=== PATIENT | male | born 1975 | race Caucasian/White ===

== ENCOUNTER 2022-07-14 16:28 | Emergency (ER) | payer OTHER, SELFPAY ==
[2022-07-14 16:51] VITALS: BP 123/78; PULSE 76; RESP 16; TEMP 37.2; O2SAT 97; BMI 28.3
--- NOTE | 2022-07-14 17:13 | CRLHL7_ITS ---
For Patients: As a result of the Century Cures Act, medical imaging exams and procedure reports are released immediately into your electronic medical record. You may view this report before your referring provider. If you have questions, please contact your health care provider. INDICATION: Lower abdominal pain. TECHNIQUE: CT abdomen and pelvis acquired with 79 cc Isovue 370 IV contrast. COMPARISON: None. FINDINGS: Lower chest: Unremarkable. Liver: Unremarkable. Normal in size and attenuation. No suspicious masses. Gallbladder and bile ducts: Unremarkable. No stones or inflammation. No biliary dilatation. Pancreas: Unremarkable. No mass or inflammation. Spleen: Unremarkable. Normal in size. No masses. Adrenal glands: Unremarkable. No nodules. Kidneys: Unremarkable. No suspicious masses, stones, or hydronephrosis. GI tract: Descending and sigmoid colon diverticulosis. Short segments sigmoid colon wall thickening about a diverticulum. There is a 2.0 x 2.2 x 1.8 cm rim enhancing fluid collection within the posterior wall of the sigmoid colon in this location, consistent with an intramural abscess. It may have ruptured as there is discontinuity of the abscess wall and apparent extension of the contents into the mesentery with extensive local inflammatory changes and thickening of the adjacent fascia (series 2, image 101). Small bowel is normal in caliber. Normal appendix. Vasculature: Abdominal aorta is normal in caliber. Mesenteric arteries are patent. Lymph nodes: No lymphadenopathy. Peritoneum/Abdominal Wall: No free air. As above with probable ruptured sigmoid colon intramural abscesses. Pelvis: Unremarkable. 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 IMPRESSION: Acute sigmoid colon diverticulitis with 2.2 cm intramural abscess that appears to have ruptured into the mesentery. No free air or obstruction. Please note that all CT scans at this facility use dose modulation, iterative reconstruction, and/or weight-based dosing when appropriate to reduce radiation dose to as low as reasonably achievable. Dictated by Jareth Scott MD @ 07/14/2022 6:30:13 PM (Electronically Signed)
[2022-07-14 17:42] LABS: Basophils Percent Auto 0.4 % (0.0-3.0); Eosinophils Percent Auto 2.6 % (0.0-7.0); Hemoglobin* 15.4 gm/dL (13.5-17.5); Immature Granulocytes Pct Auto 0.4 %; Lymphocytes Percent Auto 17.9 % (20-44); Mean Corpuscular HGB Conc 34 gm/dL (32-36); Mean Corpuscular Hemoglobin 33 pg (26-34); Mean Corpuscular Volume 97 fL (80-100); Monocytes Percent Auto 5.6 % (0.0-11.0); Neutrophils Percent Auto 73.1 % (42.0-72.0); Platelet Count* 285 K/uL (140-440); RDW Coefficient of Variation % 11.4 % (11.5-15.5); Red Blood Count 4.66 m/uL (4.30-5.90); White Blood Count* 13.49 K/uL (4.50-11.00)
[2022-07-14 18:07] LABS: Chloride* 104 mmol/L (96-114); Potassium* 4.4 mmol/L (3.6-5.1); Sodium* 139 mmol/L (135-149)
[2022-07-14 18:07] LABS: Slide Review Reflex No
[2022-07-14 18:10] LABS: Blood Urea Nitrogen* 12 mg/dL (5-24); Carbon Dioxide* 27 mmol/L (20-32)
[2022-07-14 18:11] LABS: Calcium* 9.4 mg/dL (8.4-10.6); Glucose* 93 mg/dL (60-115)
[2022-07-14 18:26] LABS: Creatinine* 0.8 mg/dL (0.5-1.5); Est. Creatinine Clearance* 91.87; Estimated Glomerular Filt Rate 110 ml/min
--- NOTE | 2022-07-14 18:38 | ED.ABDPAIN ---
HPI - Abdominal Pain General Chief Complaint: Abdominal Pain Stated Complaint: Lower abdomen pain, hurt to touch Time Seen by Provider: 07/14/22 16:38 History of Present Illness HPI narrative: This 46-year-old male comes in with lower abdominal pain that began about a week and half ago. He states that the pain comes and goes but sometimes is rather severe and makes him feel ill. He states that if he remains still he has very minimal or sometimes no pain. Pain is worse when palpating his lower abdomen and with certain movements. He does not report any fevers. He has not had any altered bowel function and no blood in the toilet. He has not had a colonoscopy. He does have some increased pain when performing a bowel movement. Related Data Home Medications Medication Instructions Recorded Confirmed ibuprofen [Advil] PO 07/14/22 07/14/22 Previous Rx's Medication Instructions Recorded hydrocodone 5 mg-acetaminophen 325 1 tab PO Q4-6H PRN pain #15 tabs 07/14/22 mg tablet Allergies Allergy/AdvReac Type Severity Reaction Status Date / Time bees Allergy Severe Hives Uncoded 07/14/22 16:56 shelfish Allergy Severe hives Uncoded 07/14/22 16:56 Review of Systems Status of ROS Reports: 10 or more systems reviewed and unremarkable except as noted in History and below Narrative Constitutional: No fevers, no weight gain or loss. Eyes: No discharge. No vision changes. HENT: No congestion, no sore throat, no ear pain. Cardiovascular: No chest pain, no palpitations. Respiratory: No shortness of breath, no wheezes, no cough. Gastrointestinal: No vomiting, no diarrhea. Abdominal pain as described above. Genitourinary: No dysuria, no hematuria. Musculoskeletal: Normal range of motion. Skin: No rashes, no pruritis. Neurological: No dizziness, weakness, sensory change, speech change. Endo/Heme/Allergies: No bruising or bleeding. No polydipsia. Pysch: no suicidality, no anxiety, no insomnia. All other systems reviewed and are negative. PFSH PFS Social History Smoking Status: Never smoker Do you use any of these nicotine containing products: None Second hand tobacco smoke exposure: No How often do you have a drink containing alcohol: 2-3 times a week How many standard drinks containing alcohol do you have on a typical day: 3 or 4 How often do you have six or more drinks on one occasion: Less than monthly AUDIT-C Alcohol total score: 5 Non-prescribed substance use: denies use and over the counter (eg: immodium) Non-prescribed substance use details: advil service: No Exam Narrative: Exam Narrative: Constitutional: Well-developed, well-nourished, no acute distress. HEENT: Normocephalic, atraumatic. Neck: Normal range of motion. Nontender. Supple. Heart: Regular. No murmurs. Normal rate. Intact distal pulses. Lungs: Clear to auscultation. No chest discomfort. No wheezes, rhonchi, or rales. Abdomen: Normal bowel sounds. Tenderness in the lower abdomen left greater than right. No rebound tenderness. Genitalia: Deferred. Back: No midline tenderness. Normal range of motion. Extremities: Normal range of motion. No injury. Skin: Intact. No rash. Warm. No erythema or pallor. Neurologic: No altered sensation. No weakness. Alert and oriented. Psychiatric: No suicidality. No anxiety or depression. No insomnia. Nursing notes and vitals signs are reviewed. Const: Vital Signs, click to edit/add: Vital Signs - 24 hr 07/14/22 16:51 Temperature 99.0 F Pulse Rate [Right Pulse Oximeter] 76 Respiratory Rate 16 Blood Pressure [Ri ght Upper Arm] 123/78 Pulse Oximetry 97 Oxygen Delivery Me thod Room Air Course Vital Signs Vital signs: Initial Vital Signs Temperature 99.0 F 07/14/22 16:51 Temperature Source Temporal Artery Scan 07/14/22 16:51 Pulse Rate 76 07/14/22 16:51 Pulse Rhythm 07/14/22 16:51 Respiratory Rate 16 07/14/22 16:51 Blood Pressure 123/78 07/14/22 16:51 Blood Pressure Mean 93 07/14/22 16:51 Blood Pressure Position Sitting 07/14/22 16:51 Pulse Oximetry 97 07/14/22 16:51 Oxygen Delivery Method 07/14/22 16:51 Vital Signs Temperature 99.0 F 07/14/22 16:51 Pulse Rate 76 07/14/22 16:51 Respiratory Rate 16 07/14/22 16:51 Blood Pressure 123/78 07/14/22 16:51 Pulse Oximetry 97 07/14/22 16:51 Oxygen Delivery Method 07/14/22 16:51 Temperature 99.0 F 07/14/22 16:51 Pulse Rate 76 07/14/22 16:51 Respiratory Rate 16 07/14/22 16:51 Blood Pressure 123/78 07/14/22 16:51 Pulse Oximetry 97 07/14/22 16:51 Oxygen Delivery Method 07/14/22 16:51 MDM - Abdominal Pain MDM Narrative Medical decision making narrative: This patient presents with abdominal pain that is suspicious for diverticulitis. He has not had an episode of this in the past. An IV was established and a scan was done using IV contrast. This does return with evidence of acute diverticulitis with a 2.2 cm abscess that has possibly ruptured into the mesentery. There is no evidence of free air. The patient has a mildly increased white blood cell count but otherwise has normal vital signs. He was up to the bathroom and seems to move around without much difficulty. I explained and relayed these symptoms to the surgeon on-call, Dr. Romero, who recommended IV antibiotic infusions daily for 7 days. He received his 1st dose of ertapenem 1 g here and arrangements are made for 6 more doses over the next 6 days. He will be returning here for these treatments and can certainly get checked in for further evaluation if symptoms are worsening. I advised him to keep his stool soft. He is recommended to have a colonoscopy after things settle down. He also received a prescription for some tablets of [place] but is informed that this medicine though providing pain relief can complicate things with increased constipation. Lab Data Labs: Lab Results 07/14/22 07/14/22 Range/Units 17:13 17:30 WBC 13.49 H (4.50-11.00) K/uL RBC 4.66 (4.30-5.90) m/uL Hgb 15.4 (13.5-17.5) gm/dL Hct 45.0 (37.0-53.0) % MCV 97 (80-100) fL MCH 33 (26-34) pg MCHC 34 (32-36) gm/dL RDW Coeff of George 11.4 L (11.5-15.5) % Plt Count 285 (140-440) K/uL Neut % (Auto) 73.1 H (42.0-72.0) % Lymph % (Auto) 17.9 L (20-44) % [place] % (Auto) 5.6 (0.0-11.0) % Eos % (Auto) 2.6 (0.0-7.0) % Baso % (Auto) 0.4 (0.0-3.0) % Neut # (Auto) 9.90 H (1.7-7.0) K/uL Lymph # (Auto) 2.40 (0.90-2.90) K/uL [place] # (Auto) 0.80 (0.00-0.90) K/UL Eos # (Auto) 0.40 (0.00-0.50) K/uL Baso # (Auto) 0.10 (0.00-0.30) K/uL Sodium 139 (135-149) mmol/L Potassium 4.4 (3.6-5.1) mmol/L Chloride 104 (96-114) mmol/L Carbon Dioxide 27 (20-32) mmol/L BUN 12 (5-24) mg/dL Creatinine 0.8 (0.5-1.5) mg/dL Estimated Creat Clear 91.87 Estimated GFR 110 ml/min Glucose 93 (60-115) mg/dL Calcium 9.4 (8.4-10.6) mg/dL Imaging Data CT scan - abdomen: Radiologist's impression: Acute sigmoid colon diverticulitis with 2.2 cm intramural abscess that appears to have ruptured into the mesentery. No free air or obstruction. Discharge Plan Discharge Clinical Impression: Diverticulitis Patient Disposition: Home, Self-Care Condition: Stable Additional Instructions: Take medicine as needed and indicated. Return daily for 6 days of infusion of ertapenem intravenously. Return to emergency department otherwise if symptoms are worsening. Follow-up for colonoscopy after symptoms resolved. Prescriptions: New hydrocodone-acetaminophen 5-325 mg tablet 1 tab PO Q4-6H PRN (Reason: pain) Qty: 15 0RF No Action ibuprofen [Advil] PO Follow Up/Referrals: Provider,Not a Local [Primary Care Provider] - Stand Alone Forms: [facility] Info Instructions
[2022-07-14] MEDS: ERTAPENEM 1 GM in 0.9 % SODIUM CHLORIDE Mini-bag 100 ML IVPB (19:15)
[2022-07-14 19:19] VITALS: BP 113/84; PULSE 81; RESP 14; TEMP 37; O2SAT 100
== END 2022-07-14 20:01 | disposition home or self-care (01) ==
PROVIDERS: Emergency Provider Emergency Medicine Emergency Medical Services
DX: K57.20 Diverticulitis of large intestine with perforation and abscess without bleeding (principal)
CPT/HCPCS: 36415; 74177; 80048; 85025; 96365; 99283; 99284; 99285; J1335; Q9967

== ENCOUNTER 2022-07-20 14:30 | Outpatient (RCR) | payer OTHER, SELFPAY ==
[2022-07-15 14:36] VITALS: BP 120/80; PULSE 79; RESP 16; TEMP 36; O2SAT 98
[2022-07-15] MEDS: ERTAPENEM 1 GM in 0.9 % SODIUM CHLORIDE Mini-bag 100 ML IVPB (14:46)
[2022-07-16] MEDS: ERTAPENEM 1 GM in 0.9 % SODIUM CHLORIDE Mini-bag 100 ML IVPB (14:33)
[2022-07-17 13:00] VITALS: BP 110/58; PULSE 75; RESP 16; TEMP 36.4; O2SAT 100
[2022-07-17] MEDS: ERTAPENEM 1 GM in 0.9 % SODIUM CHLORIDE Mini-bag 100 ML IVPB (13:15)
[2022-07-18] MEDS: ERTAPENEM 1 GM in 0.9 % SODIUM CHLORIDE Mini-bag 100 ML IVPB (13:07)
[2022-07-18 13:20] VITALS: BP 130/72; PULSE 72; RESP 16; TEMP 36.6; O2SAT 97
[2022-07-19 13:00] VITALS: BP 114/74; PULSE 78; RESP 16; TEMP 36.6
[2022-07-19] MEDS: ERTAPENEM 1 GM in 0.9 % SODIUM CHLORIDE Mini-bag 100 ML IVPB (13:07)
[2022-07-20] MEDS: ERTAPENEM 1 GM in 0.9 % SODIUM CHLORIDE Mini-bag 100 ML IVPB (14:39)
[2022-07-20] MEDS: 0.9 % SODIUM CHLORIDE 250 ml IV (14:40)
== END 2023-01-11 23:59 | disposition home or self-care (01) ==
LOC: CCIC 14:30
PROVIDERS: Visit Provider Emergency Medicine Emergency Medical Services
DX: K57.92 Diverticulitis of intestine, part unspecified, without perforation or abscess without bleeding (principal)
CPT/HCPCS: 96365; 99211; J1335; J7050

== ENCOUNTER 2022-07-28 15:34 | Outpatient (CLI) | payer OTHER, SELFPAY ==
--- NOTE | 2022-07-28 16:00 | CRLHL7_ITS ---
For Patients: As a result of the Century Cures Act, medical imaging exams and procedure reports are released immediately into your electronic medical record. You may view this report before your referring provider. If you have questions, please contact your health care provider. INDICATION: f/u diverticulitis abscess LLQ tender TECHNIQUE: CT abdomen and pelvis with 79 cc Omnipaque 370 IV contrast. COMPARISON: CT abdomen pelvis July 14, 2022. FINDINGS: The liver is normal in size, shape and attenuation. Gallbladder and biliary tree are normal. The spleen, adrenal glands and pancreas are within normal limits. The kidneys are unremarkable. No hydronephrosis. Unremarkable appearing bladder. There is redemonstration of acute diverticulitis involving the sigmoid colon with degree of inflammation markedly improved. Previously suspected ruptured intramural abscess has improved with residual minimal thickening/fluid of the sigmoid wall. There is no evidence of new fluid collection. No evidence of bowel obstruction. Unremarkable appearing appendix. No evidence of free air. Pelvic organs are unremarkable. The lower chest is unremarkable. L5 pars defects is again demonstrated. IMPRESSION: There is redemonstration of acute diverticulitis involving the sigmoid colon with degree of inflammation markedly improved. Previously suspected ruptured intramural abscess has improved with residual minimal thickening/fluid of the sigmoid wall. There is no evidence of new fluid collection. No new acute intra abdominal process. Please note that all CT scans at this facility use dose modulation, iterative reconstruction, and/or weight-based dosing when appropriate to reduce radiation dose to as low as reasonably achievable. Dictated by Deni Lloyd MD @ 07/28/2022 5:55:39 PM (Electronically Signed)
== END 2022-07-28 15:35 | disposition home or self-care (01) ==
LOC: CT 15:35
PROVIDERS: PCP Emergency Medicine; Visit Provider Emergency Medicine
DX: K57.92 Diverticulitis of intestine, part unspecified, without perforation or abscess without bleeding (principal)
CPT/HCPCS: 74177; 86140; Q9967

== ENCOUNTER 2022-09-24 10:02 | Outpatient (CLI) | payer OTHER, SELFPAY | END 2022-09-24 10:03 | disposition home or self-care (01) | LOC: OP CLINIC 10:03 | PROVIDERS: PCP Emergency Medicine; Visit Provider Internal Medicine | DX: Z12.11 Encounter for screening for malignant neoplasm of colon (principal); K63.5 Polyp of colon; K57.30 Diverticulosis of large intestine without perforation or abscess without bleeding | CPT/HCPCS: 45380; 88305; J2250; J2405; J3010 ==

== ENCOUNTER 2024-12-27 12:45 | Outpatient (CLI) | payer OTHER, SELFPAY ==
--- NOTE | 2024-12-27 13:00 | MR_ITS ---
[address] [address] Phone:?[phone] Fax:?[phone] Referring Physician Information: Zackary Street M.D. [address] [address] Phone:?[phone] Fax:?[phone] Patient:Seth Lockett D.O.B:?1975 Sex:?Male Phone:?[phone] [facility] MRN:?[id number] Exam Date:?12/27/2024 EXAM: MRI of the RIGHT SHOULDER, without contrast CLINICAL: Right shoulder pain. Evaluate for proximal biceps tear. COMPARISONS: X-rays dated 12/20/2024. TECHNICAL: Multiplanar multisequence MRI of the right shoulder was obtained. SEDATION: None. CONTRAST: None. FINDINGS: Rotator cuff: Supraspinatus/Infraspinatus: There is high-grade partial/near full-thickness bursal surface tearing of the distal supraspinatus tendon measuring approximately 16 mm in AP dimension with approximately 11 mm of proximal retraction of torn tendon fibers as seen on coronal series 5 images 8-9 and sagittal series 9 image 6. Tearing is superimposed upon moderate tendinosis. Infraspinatus tendon appears intact and unremarkable. There is no significant fatty atrophy of the muscles. Teres minor: No tendinosis, tear or atrophy. Subscapularis: Mild tendinosis without evidence of significant tendon tear. No fatty atrophy of the muscle. Bursae: Subacromial-subdeltoid: Mild bursal fluid. Subcoracoid: No significant bursal fluid. Coracoacromial arch: Acromion morphology: Type II. No os acromiale. Acromiohumeral space: Within normal limits. Coracohumeral space: Within normal limits. Biceps tendon, long head: Suspect mild tendinosis of the intra-articular tendon. No significant tendon tear or displacement. Glenohumeral joint: Physiologic volume of joint fluid. Articular cartilage: No significant chondral loss. Capsule: No evidence of capsular thickening or injury. Labrum: There is tearing of the superior labrum posterior to the biceps anchor as seen on coronal series 5 image 15-18. There is attenuation/degeneration of the posterior labrum. No perilabral cyst identified. Bones: There is osseous cystic change and reactive marrow edema involving the greater tuberosity of the proximal humerus adjacent to the distal supraspinatus tendon pathology. No evidence of acute fracture. Acromioclavicular joint: Minimal degenerative hypertrophic change. No AC joint injury/widening. IMPRESSION: 1. High-grade partial/near full-thickness tearing of the distal supraspinatus tendon with approximately 11 mm of proximal retraction of torn tendon fibers. Moderate tendinosis of the distal supraspinatus tendon and mild subscapularis tendinosis. 2. Tearing of the superior labrum with attenuation and degeneration of the posterior labrum. 3. Suspect mild tendinosis of the intra-articular long biceps tendon. No biceps tendon tear or displacement. 4. No evidence of fracture or glenohumeral chondral defects. JCZ Electronically signed on 12/28/2024 8:51:00 AM by Alin Cullen D.O.
== END 2024-12-27 12:46 | disposition home or self-care (01) ==
LOC: MRI 12:45
PROVIDERS: PCP Emergency Medicine; Visit Provider Orthopaedic Surgery Sports Medicine
DX: M25.511 Pain in right shoulder (principal); M75.101 Unspecified rotator cuff tear or rupture of right shoulder, not specified as traumatic; S43.431A Superior glenoid labrum lesion of right shoulder, initial encounter
CPT/HCPCS: 73221

== ENCOUNTER 2025-04-26 15:20 | Outpatient (CLI) | payer OTHER, SELFPAY | END 2025-04-26 15:21 | disposition home or self-care (01) | LOC: NFLDREF 04-30 08:43 | PROVIDERS: PCP Emergency Medicine; Referring Provider Emergency Medicine; Visit Provider Family Medicine | DX: Z01.818 Encounter for other preprocedural examination (principal) | CPT/HCPCS: 80048 ==

== ENCOUNTER 2025-05-15 07:28 | Day surgery (SDC) | payer OTHER, SELFPAY ==
[2025-05-15] VITALS (16 sets, daily range): BP systolic 108–132; BP diastolic 55–80; PULSE 66–88; RESP 16–18; TEMP 36.3–36.8; O2SAT 93–100; BMI 24.6
--- NOTE | 2025-05-15 07:48 | W.PM.H&PU ---
History & Physical Update History & Physical Update H&P Reviewed and patient assessed: No changes noted
[2025-05-15] MEDS: SODIUM CHLORIDE 0.9 % (FLUSH) 10 ML SYRINGE IVF (08:05)
[2025-05-15] MEDS: LACTATED RINGERS 1000 ML 1,000 ML 100 ML IV (08:05)
[2025-05-15] MEDS: MIDAZOLAM HCL 1 MG/ML inj IVP (08:37)
--- NOTE | 2025-05-15 08:44 | W.PM.NB ---
Nerve Block Nerve Block Time Seen by Provider: 08:42 Date Seen: 05/15/25 Type of block requested by surgeon for post-operative analgesia: supraclavicular Side: right Time out performed: Yes Verification of patient name: Yes Verification of date of : Yes Site marking: site marked Name of person performing procedure: Continuous monitoring Was continuous monitoring of O2 sat, B/P, cardiac monitor technician, recorded every 15 minutes?: Yes Procedure Checklist: sterile prep, needles and gloves Ultrasound guided. Images saved: Yes Medications given in 5ml increments after negative aspiration: Ropivicaine %: 0.5 mL: 20 Needle gauge: 22 Precedex (mcg): 25 Patient tolerated procedure well: Yes Block Charges Block Charge (with Pro Fee): Brachial Plexus Use of Ultrasound Machine for Block: Yes- US Guidance/pain block
--- NOTE | 2025-05-15 08:44 | SUR.PREOP ---
TIME?OUT:?0836 PT/RN/MDA?VERIFICATION?OF?SURGICAL?SITE,?PROCEDURE,?AND?CONSENT OBTAINED?PRIOR?TO?INVASIVE?PROCEDURE.
--- NOTE | 2025-05-15 09:23 | P.ANES_ITS ---
Anesthesia Charges Start Date/Time Anesthesia Start Date: 05/15/25 Anesthesia Start Time: 08:48 Stop Date/Time Anesthesia Stop Date: 05/15/25 Anesthesia Stop Time: 11:05 Coding CPT Codes CPT Codes: ANESTH SURGERY OF SHOULDER - 62941 ([id number]) P1 - NORMAL HEALTHY PATIENT, QK - VETERINARIAN EPIDEMIOLOGIST 2-4 CNCRNT ANES PROC, QX - OFFICE MACHINE EMBOSSOGRAPH OPERATOR SVDay W/ MED DIRECTION
--- NOTE | 2025-05-15 09:23 | W.ANESCHARGE ---
Anesthesia Charges Start Date/Time Anesthesia Start Date: 05/15/25 Anesthesia Start Time: 08:48 Stop Date/Time Anesthesia Stop Date: 05/15/25 Anesthesia Stop Time: 11:05 Coding CPT Codes CPT Codes: ANESTH SURGERY OF SHOULDER - 01219 ([id number]) P1 - NORMAL HEALTHY PATIENT, QK - BUILDING DISMANTLER 2-4 CNCRNT ANES PROC, QX - PEDIATRIC UROLOGIST SVDay W/ MED DIRECTION
[2025-05-15] MEDS: EPINEPHrine 1 MG in SODIUM CHLORIDE IRRIG SOLUTION 3,000 ML 9003 MG IRRIGATION ×2 (10:00→10:10)
[2025-05-15] MEDS: EPINEPHrine 1 MG in SODIUM CHLORIDE IRRIG SOLUTION 3,000 ML 8500 MG IRRIGATION (10:30)
--- NOTE | 2025-05-15 10:36 | PM.ORPRC ---
Procedure Note Date of procedure: 05/15/25 Procedure: PREOPERATIVE DIAGNOSES: 1. Right shoulder rotator cuff tear - high-grade partial-thickness supraspinatus 2. Right shoulder superior labral tearing 3. Right shoulder subacromial impingement syndrome. POSTOPERATIVE DIAGNOSES: 1. Right shoulder rotator cuff tear - high-grade partial-thickness supraspinatus and upper border subscapularis 2. Right shoulder superior labral tearing 3. Right shoulder subacromial impingement syndrome. NAME OF OPERATION: 1. Right shoulder arthroscopic rotator cuff repair - high-grade partial-thickness anterior supraspinatus and upper border subscapularis 2. Right shoulder arthroscopic limited glenohumeral debridement 3. Right shoulder arthroscopic bursectomy, subacromial decompression/partial acromioplasty. SURGEON: Zackary Street MD WIRE WEAVER CLOTH: Torsten Chamberlain PA-C. Of note, a skilled library serials assistant was critical for this case to aide in patient positioning, suture manipulation, arm positioning, instrument positioning, and closure. ANESTHESIA: General plus preoperative supraclavicular block. EBL: 25 mL IMPLANTS: Arthrex 4.75 mm BioComposite SwiveLock suture anchor (x3) COMPLICATIONS: None evident INDICATIONS: The patient is a pleasant, 49-year-old male who has experienced right shoulder pain that has been increasing in recent time. Physical exam and imaging were consistent with a rotator cuff tear. Given their findings, as well as the weakness and pain, and inadequate response to nonoperative management, recommendation was made for surgery. FINDINGS: Exam under anesthesia revealed stable shoulder with excellent range of motion. The diagnostic arthroscopy revealed healthy chondral surfaces of the glenohumeral joint. The Subscapularis tendon was torn from its upper border with mild retraction. The long head of the biceps tendon was intact and within the bicipital groove without partial tearing. The superior rotator cuff tendon was found to be torn and high-grade partial-thickness manner of the anterior portion. The labrum was degeneratively frayed/torn in the superior aspect. No loose bodies were identified within the pouch or subscapularis recess. PROCEDURE: Following a thorough discussion of risks, benefits, and alternatives, consent was obtained and the right shoulder was marked. The patient was brought to the operating room and placed supine on the operating table. Induction of anesthesia was completed after preoperative supraclavicular block was administered in preop holding. Appropriate time out was performed identifying proper patient, site, and procedure. 2 g IV Ancef was administered within 1 hour of incision preoperatively. The right upper extremity was prepped and draped in the appropriate sterile fashion using ChloraPrep prep. This was after the patient was positioned in the beach chair with their head in neutral alignment and all bony prominences well padded. The shoulder was insufflated with 20mL of normal saline via an 18g spinal needle from a posterior approach. An 11 blade skin incision allowed a blunt trochar to be inserted and diagnostic arthroscopy to be performed with the findings as noted above. An anterior portal was established with an outside in technique. This allowed the probe to be inserted and confirm the diagnostic arthroscopic findings. The shaver was then inserted and allowed debridement of the superior labrum. Following this, the upper border subscapularis was repaired after debriding the lesser tuberosity with the shaver and [place] cautery. Subscapularis was captured in horizontal mattress fashion with a fiber tape suture. The tails were brought to a single anchor in the lesser tuberosity with excellent reapproximation of the subscap tendon and good excursion/tension. Thereafter, the subacromial space was entered. Here, a complete bursectomy and partial acromioplasty/subacromial decompression was performed with a combination of radiofrequency ablator, the shaver, and a 5.5 mm bur. Further inspection of the supraspinatus and infraspinatus rotator cuff was performed. This identified the tear as noted above. The margins of the tear were debrided, and the greater tuberosity was debrided with a combination of the apollo cautery, shaver, and bur on reverse setting. After gentle decortication, a single medial row and single lateral row anchor were planned and utilized. A FiberTape was preloaded on the medial row anchor and the tails were passed independently including FiberWire eyelet sutures. These 4 tails were brought to a single lateral row anchor (all 3 anchors utilized were 4.75 mm BioComposite swivelocks). The rotator cuff showed excellent reapproximation of the greater tuberosity with good security upon probing. Prior to anchor delivery route driver removal, the eyelet sutures were tugged on for each anchor and found that the anchor had excellent stability within the bone. The shoulder was placed through range of motion and found to be stable. The rotator cuff was re-probed and found to be stable. Instruments were removed. Excess fluid was drained, closure performed with 4-0 Monocryl and Steri-Strips. Dressings were applied. Sling was applied. The patient was awoken from anesthesia and transferred to the PACU in stable condition. A skilled library serials assistant was critical for this case to aid in patient positioning, limb positioning, skill to manipulate arthroscopic instruments and camera, suture management, patient safety, and closure. PLAN: 1. Elbow, forearm, wrist and digit range of motion as tolerated. 2. Encouraged ice. 3. Oxycodone for pain as needed. 4. Sling at all times except for ROM and showering. 5. Follow up with PA visit in 1-2 weeks for wound check. Initiate physical therapy following that visit for passive range of motion. Initiate active assisted range of motion at 3-4weeks. May do pendulums now.
--- NOTE | 2025-05-15 11:19 | P.ANES_ITS ---
Anesthesia Charges Start Date/Time Anesthesia Start Date: 05/15/25 Anesthesia Start Time: 08:48 Stop Date/Time Anesthesia Stop Date: 05/15/25 Anesthesia Stop Time: 11:05 Coding CPT Codes CPT Codes: ANESTH SURGERY OF SHOULDER - 68855 ([id number]) P1 - NORMAL HEALTHY PATIENT, QK - TINTER PHOTOGRAPH 2-4 CNCRNT ANES PROC, QX - PROMOTIONAL MARKETING AGENT SVDay W/ MED DIRECTION
--- NOTE | 2025-05-15 11:19 | W.ANESCHARGE ---
Anesthesia Charges Start Date/Time Anesthesia Start Date: 05/15/25 Anesthesia Start Time: 08:48 Stop Date/Time Anesthesia Stop Date: 05/15/25 Anesthesia Stop Time: 11:05 Coding CPT Codes CPT Codes: ANESTH SURGERY OF SHOULDER - 83412 ([id number]) P1 - NORMAL HEALTHY PATIENT, QK - BUCKLE SEWER 2-4 CNCRNT ANES PROC, QX - TAXI SERVICER SVDay W/ MED DIRECTION
== END 2025-05-15 13:00 | disposition home or self-care (01) ==
LOC: OR 07:29
PROVIDERS: Visit Provider Orthopaedic Surgery Sports Medicine
PROC: (CPT 29805; principal; 2025-05-15 09:00)
DX: M75.111 Incomplete rotator cuff tear or rupture of right shoulder, not specified as traumatic (principal); S43.431A Superior glenoid labrum lesion of right shoulder, initial encounter; M75.41 Impingement syndrome of right shoulder; G89.18 Other acute postprocedural pain
CPT/HCPCS: 29827; 29826; 29822; 01630; 64415; 76942; C1713; J0169; J0690; J1100; J2250; J2371; J2405; J2704; J2795; J3010; J3490; J7120; L3670